=== PATIENT | female | born 1960 | race African-American/Black ===

== ENCOUNTER 2018-03-17 20:52 | Inpatient (IN) | payer BC ==
[2018-03-17] MEDS ORDERED: NORMAL SALINE 1000 ML 1,000 ML IV ONE (21:32)
--- NOTE | 2018-03-17 21:33 | ER Document Report ---
ED Medical Screen (RME) - General Chief Complaint: High Blood Sugar Stated Complaint: BLOOD SUGAR PROBLEM Time Seen by Provider: 03/17/18 21:30 Mode of Arrival: Ambulatory Information source: Patient Notes: 58-year-old female hypertensive patient with no PCP has been feeling very fatigued all weekend with polydipsia poly-urea. Her daughter measured her blood sugar today and it read H at home and they believe that she is a new onset diabetic. Weight loss. No chest pain or abd. pain. No fever. IV has been inserted and 1 L of normal saline as a running. She is drinking water without vomiting. Labs have been sent and I added a venous blood gas. She is sitting in the pit waiting room. - Related Data Allergies/Adverse Reactions: No Known Allergies Allergy (Verified 07/14/13 11:35) Past Medical History - Past Medical History Cardiac Medical History: Reports: Hx Hypertension Neurological Medical History: Reports: Hx Migraine - Immunizations Hx Diphtheria, Pertussis, Tetanus Vaccination: No Course - Laboratory Result Diagrams: 03/17/18 21:10 03/17/18 21:10
[2018-03-17 21:46] LABS: ABSOLUTE BASOPHILS # (AUTO) 0.1 10^3/uL (0.0-0.2); ABSOLUTE MONOCYTES (AUTO) 0.7 10^3/uL (0.1-1.4); ABSOLUTE NEUT (AUTO) 7.6 10^3/uL (1.7-8.2); BASOPHILS % (AUTO) 0.7 % (0-2); EOSINOPHILS % (AUTO) 0.3 % (0-6); HEMATOCRIT 36.9 % (36.0-47.0); HEMOGLOBIN 12.1 g/dL (12.0-15.5); LYMPHOCYTES % (AUTO) 19.1 % (13-45); MEAN CORPUSCULAR HEMOGLOBIN 26.9 pg (27.0-33.4); MEAN CORPUSCULAR HGB CONC 32.9 g/dL (32.0-36.0); MEAN CORPUSCULAR VOLUME 82 fl (80-97); MONOCYTES % (AUTO) 6.8 % (3-13); PLATELET COUNT 403 10^3/uL (150-450); RED BLOOD COUNT 4.52 10^6/uL (3.72-5.28); RED CELL DISTRIBUTION WIDTH 14.6 % (11.5-14.0); SEGMENTED NEUTROPHILS % (AUTO) 73.1 % (42-78); TOTAL CELLS COUNTED % (AUTO) 100 %; WHITE BLOOD COUNT 10.4 10^3/uL (4.0-10.5)
[2018-03-17 21:52] LABS: ALANINE AMINOTRANSFERASE 74 U/L (9-52); ALBUMIN 4.2 g/dL (3.5-5.0); ALKALINE PHOSPHATASE 362 U/L (38-126); ANION GAP 12 (5-19); ASPARTATE AMINO TRANSFERASE 106 U/L (14-36); BILIRUBIN,TOTAL 1.6 mg/dL (0.2-1.3); BLOOD UREA NITROGEN 26 mg/dL (7-20); CALCIUM 9.6 mg/dL (8.4-10.2); CARBON DIOXIDE 32 mmol/L (22-30); CHLORIDE 75 mmol/L (98-107); POTASSIUM 3.5 mmol/L (3.6-5.0); TOTAL PROTEIN 7.3 g/dL (6.3-8.2)
[2018-03-17 22:04] LABS: SODIUM 118.5 mmol/L (137-145)
[2018-03-17 22:05] LABS: GLUCOSE 954 mg/dL (75-110)
[2018-03-17] MEDS ORDERED: DEXTROSE 40% GEL 15 GM TUBE PO PRN ×4 (22:11→22:20)
[2018-03-17] MEDS ORDERED: DEXTROSE 50%-WATER 25 GM/50 ML DISP.SYRIN IV PRN ×4 (22:11→22:20)
[2018-03-17] MEDS ORDERED: NORMAL SALINE 100 ML with INSULIN REGULAR, HUMAN 100 UNIT IV PRN ×2 (22:11)
[2018-03-17] MEDS ORDERED: GLUCAGON,HUMAN RECOMB 1 MG INJ IM PRN ×2 (22:11→22:20)
[2018-03-17] MEDS ORDERED: INSULIN LISPRO 100 UNIT/ML 3 ML VIAL SUBCUT ONE (22:19)
[2018-03-17] MEDS ORDERED: HYDRALAZINE HCL INJ/PF 20 MG/1 ML SDV IV PRN (22:20)
--- NOTE | 2018-03-17 22:22 | ER Document Report ---
ED General - General Chief Complaint: High Blood Sugar Stated Complaint: BLOOD SUGAR PROBLEM Time Seen by Provider: 03/17/18 21:30 Mode of Arrival: Ambulatory Notes: Patient is a 58-year-old female presents with complaint of almost 1 week of increased thirst, increased urination, feeling very fatigued. Her friend is diabetic and checked her blood sugar and blood sugar read high and therefore he came to the ER. She is does not see Dr. She is on no medications. She is otherwise healthy. She has no other complaints this time. No recent fevers or infections. She denies any pain. She has some nausea but no vomiting. - Related Data Allergies/Adverse Reactions: No Known Allergies Allergy (Verified 07/14/13 11:35) Past Medical History - General Information source: Patient - Social History Smoking Status: Unknown if Ever Smoked Frequency of alcohol use: None Drug Abuse: None Family History: Reviewed & Not Pertinent - Past Medical History Cardiac Medical History: Reports: Hx Hypertension Neurological Medical History: Reports: Hx Migraine - Immunizations Hx Diphtheria, Pertussis, Tetanus Vaccination: No Review of Systems - Review of Systems Notes: My Normal Review Basic REVIEW OF SYSTEMS: CONSTITUTIONAL : Denies fever, chills, or sweats. Denies recent illness. CARDIOVASCULAR: Denies chest pain. RESPIRATORY: Denies cough, cold, or chest congestion. Denies shortness of breath, difficulty breathing, or wheezing. GASTROINTESTINAL: Denies abdominal pain. Denies nausea, vomiting, or diarrhea. GENITOURINARY: Increased urination. MUSCULOSKELETAL: Denies neck or back pain or joint pain or swelling. SKIN: Denies rash or skin lesions. NEUROLOGICAL: Denies altered mental status or loss of consciousness. Denies headache. Denies weakness or paralysis or loss of use of either side. Denies problems with gait or speech. Denies sensory or motor loss. ALL OTHER SYSTEMS REVIEWED AND NEGATIVE. Physical Exam - Vital signs Vitals: Pulse Resp BP Pulse Ox 110 H 14 133/81 H 97 03/17/18 21:00 03/17/18 21:00 03/17/18 21:00 03/17/18 21:00 - Notes Notes: General Appearance: Well nourished, alert, cooperative, no acute distress, no obvious discomfort. Well appearing Vitals: reviewed, See vital signs table. Head: no swelling or tenderness to the head Eyes: PERRL, EOMI, Conjuctiva clear Mouth: No decreasd moisture Lungs: No wheezing, No rales, No rhonci, No accessory muscle use, good air exchange bilaterally. Heart: Normal rate, Regular rythm, No murmur, no rub Abdomen: Normal BS, soft, No rigidity, No abdominal tenderness, No guarding, no rebound, no abdominal masses, no organomegaly Extremities: strength 5/5 in all extremities, good pulses in all extremities, no swelling or tenderness in the extremities, no edema. Skin: warm, dry, appropriate color, no rash Neuro: speech clear, oriented x 3, normal affect, responds appropriately to questions. Course - Re-evaluation Re-evalutation: 03/17/18 22:37 Patient has new onset diabetes. Patient's blood sugars over 900. She fortunately is not acidotic. She does have hyponatremia but this is a result of her being hypoglycemic. I did speak with the hospitalist, Dr. Philip, who agrees to admit the patient for treatment of her hyperglycemia, diabetes education, and starting her on medications to help manage her new onset diabetes. Patient agrees with plan and will be admitted. Dictation of this chart was performed using voice recognition software; therefore, there may be some unintended grammatical errors. - Vital Signs Vital signs: Temp Pulse Resp BP Pulse Ox 110 H 14 133/81 H 97 03/17/18 21:00 03/17/18 21:00 03/17/18 21:00 03/17/18 21:00 - Laboratory Result Diagrams: 03/17/18 21:10 03/17/18 21:10 Laboratory results interpreted by me: 03/17/18 03/17/18 21:10 21:10 MCH 26.9 L RDW 14.6 H Sodium 118.5 L* Potassium 3.5 L Chloride 75 L Carbon Dioxide 32 H BUN 26 H Glucose 954 H* Total Bilirubin 1.6 H Direct Bilirubin 1.0 H AST 106 H ALT 74 H Alkaline Phosphatase 362 H Discharge - Discharge Clinical Impression: Hyperglycemia Disposition: ADMITTED OBSERVATION Admitting Provider: Hospitalist Unit Admitted: Medical Floor
[2018-03-17 22:44] LABS: VENOUS BLOOD BASE EXCESS 4.2 mmol/L; VENOUS BLOOD HCO3 29.5 mmol/L (20-32); VENOUS BLOOD PCO2 47.1 mmHg (35-63); VENOUS BLOOD PH 7.42 (7.30-7.42)
[2018-03-17 22:59] LABS: APPEARANCE,URINE CLEAR; BILIRUBIN,URINE NEGATIVE (NEGATIVE); COLOR,URINE STRAW; GLUCOSE, URINE >=500 mg/dL (NEGATIVE); KETONES,URINE TRACE mg/dL (NEGATIVE); LEUKOCYTE ESTERASE,URINE NEGATIVE (NEGATIVE); NITRITE,URINE NEGATIVE (NEGATIVE); PROTEIN,URINE NEGATIVE (NEGATIVE); URINE SPECIFIC GRAVITY 1.023; UROBILINOGEN,URINE NEGATIVE mg/dL (<2.0)
[2018-03-18] MEDS ORDERED: DEXTROSE 40% GEL 15 GM TUBE PO PRN ×4 (01:18→16:57)
[2018-03-18] MEDS ORDERED: GLUCAGON,HUMAN RECOMB 1 MG INJ IM PRN ×2 (01:18→16:57)
[2018-03-18] MEDS ORDERED: DEXTROSE 50%-WATER 25 GM/50 ML DISP.SYRIN IV PRN ×4 (01:18→16:57)
--- NOTE | 2018-03-18 04:48 | PDOC H&P ---
History of Present Illness Admission Date/PCP: 03/17/18 22:34 Patient complains of: Abdominal pain nausea without vomiting History of Present Illness: SEDA LOYD is a 58 year old female with a past medical history of hypertension. Patient presents with 4 days of generalized fatigue, polyuria polydipsia and recent weight loss. In the emergency room she is found to have a blood sugar greater than 900 without altered mental status or acidosis. She receives an IV fluid challenge IV insulin and referred to the hospitalist for admission. She denies recent illness beyond the above. No new medications. Past Medical History Cardiac Medical History: Reports: Hypertension Neurological Medical History: Reports: Migraine Musculoskeltal Medical History: Reports: Arthritis Psychiatric Medical History: Denies: Depression Past Surgical History Past Surgical History: Reports: None Social History Information Source: Patient Smoking Status: Never Smoker Frequency of Alcohol Use: Social Hx Recreational Drug Use: No Drugs: None Hx Prescription Drug Abuse: No - Advance Directive Resuscitation Status: Full Code Family History Family History: Hypertension Parental Family History Reviewed: Yes Children Family History Reviewed: Yes Sibling(s) Family History Reviewed.: Yes Medication/Allergy Home Medications: Acetaminophen with Codeine [Tylenol with Codeine #3 Tablet] 1 tab PO TID PRN Azilsartan Med/Chlorthalidone [Edarbyclor 40-12.5 mg Tablet] 1 tab PO DAILY Hydroxyzine Pamoate [Vistaril 50 Mg Capsule] 50 mg PO DAILY PRN #10 capsule Allergies/Adverse Reactions: No Known Allergies Allergy (Verified 07/14/13 11:35) Review of Systems Constitutional: PRESENT: as per HPI, fatigue, weakness, weight loss. ABSENT: chills, fever(s), headache(s), weight gain Eyes: ABSENT: visual disturbances Ears: ABSENT: hearing changes Nose, Mouth, and Throat: ABSENT: headache(s), mouth pain, sore throat Cardiovascular: ABSENT: chest pain, dyspnea on exertion, edema, orthropnea, palpitations Respiratory: ABSENT: cough, hemoptysis Gastrointestinal: PRESENT: bloating, heartburn, nausea, vomiting. ABSENT: abdominal pain, constipation, diarrhea, hematemesis, hematochezia Genitourinary: PRESENT: as per HPI. ABSENT: dysuria, hematuria Musculoskeletal: ABSENT: joint swelling Integumentary: ABSENT: rash, wounds Neurological: ABSENT: abnormal gait, abnormal speech, confusion, dizziness, focal weakness, syncope Psychiatric: ABSENT: anxiety, depression, homidical ideation, suicidal ideation Endocrine: PRESENT: as per HPI, polydipsia, polyphagia, polyuria. ABSENT: cold intolerance, heat intolerance Hematologic/Lymphatic: ABSENT: easy bleeding, easy bruising Physical Exam Vital Signs: Temp Pulse Resp BP Pulse Ox 97.5 F 77 17 143/89 H 99 03/18/18 00:04 03/18/18 00:04 03/18/18 00:04 03/18/18 00:04 03/18/18 00:04 Intake & Output 03/16/18 03/17/18 03/18/18 11:59 11:59 11:59 Weight 87.1 kg General appearance: PRESENT: no acute distress, well-developed, well-nourished Head exam: PRESENT: atraumatic, normocephalic Eye exam: PRESENT: conjunctiva pink, EOMI, PERRLA. ABSENT: scleral icterus Ear exam: PRESENT: normal external ear exam Mouth exam: PRESENT: moist, tongue midline Neck exam: ABSENT: carotid bruit, JVD, lymphadenopathy, thyromegaly Respiratory exam: PRESENT: clear to auscultation manav. ABSENT: rales, rhonchi, wheezes Cardiovascular exam: PRESENT: RRR. ABSENT: diastolic murmur, rubs, systolic murmur Pulses: PRESENT: normal dorsalis pedis pul Vascular exam: PRESENT: normal capillary refill GI/Abdominal exam: PRESENT: normal bowel sounds, soft. ABSENT: distended, guarding, mass, organolmegaly, rebound, tenderness Rectal exam: PRESENT: deferred Extremities exam: PRESENT: full ROM. ABSENT: calf tenderness, clubbing, pedal edema Neurological exam: PRESENT: alert, awake, oriented to person, oriented to place , oriented to time, oriented to situation, CN II-XII grossly intact. ABSENT: motor sensory deficit Psychiatric exam: PRESENT: appropriate affect, normal mood. ABSENT: homicidal ideation, suicidal ideation Skin exam: PRESENT: dry, intact, warm. ABSENT: cyanosis, rash Results Laboratory Results: 03/17/18 22:50 Urine Color STRAW Urine Appearance CLEAR Urine pH 6.0 Ur Specific [place] 1.023 Urine Protein NEGATIVE Urine Glucose (UA) >=500 H Urine Ketones TRACE H Urine Blood NEGATIVE Urine Nitrite NEGATIVE Ur Leukocyte Esterase NEGATIVE Urine WBC (Auto) 1 Urine RBC (Auto) 1 Assessment & Plan - Diagnosis (1) Hyperglycemia Is this a current diagnosis for this admission?: Yes Plan: Secondary to undiagnosed diabetes. IV saline, insulin and education medical bed for observation (2) Hyponatremia Is this a current diagnosis for this admission?: Yes Plan: Pseudohyponatremia secondary to profound hyperglycemia. Follow-up chemistry (3) Diabetes Is this a current diagnosis for this admission?: Yes Plan: New diagnosis, health promotion educator and dietitian consult. 6 insulin 70 3015 units subcut with Humalog sliding scale - Time Time Spent: 30 to 50 Minutes - Inpatient Certification Medical Necessity: Need Close Monitoring Due to Risk of Patient Decompensation
[2018-03-18] MEDS ORDERED: HEPARIN SOD (PORCINE) 5,000 UNIT/ML 1 ML SYRINGE SUBCUT SCH (06:00)
[2018-03-18] MEDS: INSULIN LISPRO 100 UNIT/ML 3 ML VIAL SUBCUT PRN ×4 (06:06→22:20)
[2018-03-18] MEDS ORDERED: HUM INSULIN NPH/REG INSULIN HM 100 UNIT/1 ML 3 ML SUBCUT SCH (08:00)
[2018-03-18 11:07] LABS: ANION GAP 12 (5-19); BLOOD UREA NITROGEN 14 mg/dL (7-20); CALCIUM 9.9 mg/dL (8.4-10.2); CARBON DIOXIDE 32 mmol/L (22-30); CHLORIDE 84 mmol/L (98-107); GLUCOSE 272 mg/dL (75-110); SODIUM 128.4 mmol/L (137-145)
[2018-03-18 11:09] LABS: POTASSIUM 2.6 mmol/L (3.6-5.0)
[2018-03-18] MEDS ORDERED: POTASSIUM CHLORIDE 20 MEQ/15 ML UDCUP PO ONE ×2 (12:00→14:38)
[2018-03-18] MEDS ORDERED: POTASSIUM CHLORIDE 20 MEQ/50 ML RTU IV ONE (12:00)
[2018-03-18] MEDS ORDERED: HYDROXYZINE PAMOATE 50 MG CAPSULE PO PRN (17:03)
[2018-03-18] MEDS ORDERED: ACETAMINOPHEN WITH CODEINE #3 TABLET PO PRN (17:04)
--- NOTE | 2018-03-18 17:07 | PDOC PROGRESS REPORT ---
Subjective Progress Note for:: 03/18/18 Subjective:: 58-year-old female diagnosed with hypertension in the past with no outpatient medical follow-up. She presented to the hospital on March 17 with a 4 day history of generalized fatigue weakness probably urea and polydipsia and weight loss. In the emergency room she was found to have a blood sugar greater than 900. No evidence of metabolic acidosis. She was given IV fluids and insulin and admitted. She was started on 7030. She was found to have significant hypokalemia this morning and was given supplemental potassium. Reason For Visit: DIABETES newly diagnosed Physical Exam Vital Signs: Temp Pulse Resp BP Pulse Ox 98.3 F 94 14 117/90 H 100 03/18/18 16:00 03/18/18 16:00 03/18/18 16:00 03/18/18 16:00 03/18/18 16:00 Intake & Output 03/17/18 03/18/18 03/19/18 06:59 06:59 06:59 Intake Total 250 10 Balance 250 10 Weight 87.1 kg General appearance: PRESENT: no acute distress Head exam: PRESENT: normocephalic Eye exam: PRESENT: PERRLA. ABSENT: scleral icterus Ear exam: PRESENT: normal external ear exam Mouth exam: PRESENT: moist Neck exam: ABSENT: tracheal deviation Respiratory exam: PRESENT: clear to auscultation manav, symmetrical, unlabored Cardiovascular exam: PRESENT: RRR GI/Abdominal exam: PRESENT: normal bowel sounds, soft. ABSENT: tenderness Rectal exam: PRESENT: deferred Extremities exam: ABSENT: calf tenderness, pedal edema Neurological exam: PRESENT: alert, awake, oriented to person, oriented to place , oriented to time, oriented to situation Psychiatric exam: PRESENT: appropriate affect Skin exam: ABSENT: rash, skin tears Results Laboratory Results: 03/18/18 10:23 03/17/18 03/18/18 03/18/18 22:50 10:23 10:23 Sodium 128.4 L Potassium 2.6 L* Chloride 84 L Carbon Dioxide 32 H Anion Gap 12 BUN 14 Creatinine 0.54 Est GFR ( Amer) > 60 Est GFR (Non-Af Amer) > 60 Glucose 272 H Calcium 9.9 Phosphorus 2.0 L Magnesium 2.3 TSH 0.27 L Urine Color STRAW Urine Appearance CLEAR Urine pH 6.0 Ur Specific [place] 1.023 Urine Protein NEGATIVE Urine Glucose (UA) >=500 H Urine Ketones TRACE H Urine Blood NEGATIVE Urine Nitrite NEGATIVE Ur Leukocyte Esterase NEGATIVE Urine WBC (Auto) 1 Urine RBC (Auto) 1 Assessment & Plan - Diagnosis (1) Newly diagnosed diabetes Is this a current diagnosis for this admission?: Yes Plan: Started on 70/30, continue sliding scale adjust dosage, monitor glucose Diabetes education (2) Hypokalemia Is this a current diagnosis for this admission?: Yes Plan: Replaced, continue to monitor. Discontinue chlorthalidone (3) Hyponatremia Is this a current diagnosis for this admission?: No Plan: Ruled out-corrected sodium is 134. (4) Hypertension Qualifiers: Hypertension type: essential hypertension Qualified Code(s): I10 - Essential (primary) hypertension Is this a current diagnosis for this admission?: Yes Plan: BPs are running low normal. No medications for now. Continue to monitor. - Time Time Spent with patient: 35 or more minutes
[2018-03-18] MEDS ORDERED: HUM INSULIN NPH/REG INSULIN HM 100 UNIT/1 ML 3 ML SUBCUT ONE (17:30)
--- NOTE | 2018-03-18 21:44 | EKG REPORT ---
SEVERITY:- ABNORMAL ECG - SINUS RHYTHM LVH WITH SECONDARY REPOLARIZATION ABNORMALITY : Confirmed by: Luann Hope 18-Mar-2018 21:43:53
[2018-03-19 04:41] LABS: ANION GAP 9 (5-19); BLOOD UREA NITROGEN 12 mg/dL (7-20); CALCIUM 10.3 mg/dL (8.4-10.2); CARBON DIOXIDE 34 mmol/L (22-30); CHLORIDE 92 mmol/L (98-107); CHOLESTEROL 171.08 mg/dL (0-200); GLUCOSE 326 mg/dL (75-110); POTASSIUM 3.4 mmol/L (3.6-5.0); SODIUM 135.2 mmol/L (137-145); TRIGLYCERIDES 156 mg/dL (<150)
[2018-03-19 04:53] LABS: DIRECT LDL 83 mg/dL (<100)
[2018-03-19 04:57] LABS: VLDL CHOLESTEROL 31.2 mg/dL (10-31)
[2018-03-19] MEDS ORDERED: HUM INSULIN NPH/REG INSULIN HM 100 UNIT/1 ML 3 ML SUBCUT SCH (08:00)
[2018-03-19] MEDS ORDERED: POTASSIUM CHLORIDE 20 MEQ/15 ML UDCUP PO ONE (08:55)
[2018-03-19] MEDS: INSULIN LISPRO 100 UNIT/ML 3 ML VIAL SUBCUT PRN ×3 (09:03→16:58)
[2018-03-19] MEDS ORDERED: HUM INSULIN NPH/REG INSULIN HM 100 UNIT/1 ML 3 ML SUBCUT ONE (09:15)
--- NOTE | 2018-03-19 11:54 | PDOC PROGRESS REPORT ---
Subjective Progress Note for:: 03/19/18 Subjective:: 58-year-old female diagnosed with hypertension in the past with no outpatient medical follow-up. She presented to the hospital on March 17 with a 4 day history of generalized fatigue weakness probably urea and polydipsia and weight loss. In the emergency room she was found to have a blood sugar greater than 900. No evidence of metabolic acidosis. She was given IV fluids and insulin and admitted. She was started on 70/30. Doses are being adjusted for better blood glucose control. This morning it was increased to 25 units twice a day. She is hypokalemic again and this was repleted. No complaints at present. Reason For Visit: DIABETES Physical Exam Vital Signs: Temp Pulse Resp BP Pulse Ox 97.4 F 90 18 118/93 H 100 03/19/18 08:00 03/19/18 08:00 03/19/18 08:00 03/19/18 08:00 03/19/18 08:00 Intake & Output 03/18/18 03/19/18 03/20/18 06:59 06:59 06:59 Intake Total 250 1246 10 Balance 250 1246 10 Weight 87.1 kg 87.1 kg General appearance: PRESENT: no acute distress Eye exam: ABSENT: scleral icterus Ear exam: PRESENT: normal external ear exam Mouth exam: PRESENT: moist Neck exam: ABSENT: tracheal deviation Respiratory exam: PRESENT: clear to auscultation manav, symmetrical, unlabored Cardiovascular exam: PRESENT: RRR GI/Abdominal exam: PRESENT: normal bowel sounds, soft. ABSENT: tenderness Rectal exam: PRESENT: deferred Extremities exam: ABSENT: calf tenderness, pedal edema Neurological exam: PRESENT: alert, awake, oriented to person, oriented to place , oriented to time, oriented to situation Psychiatric exam: PRESENT: appropriate affect Skin exam: ABSENT: petechiae Results Laboratory Results: 03/19/18 04:04 03/19/18 03/19/18 04:04 04:04 Sodium 135.2 L Potassium 3.4 L Chloride 92 L Carbon Dioxide 34 H Anion Gap 9 BUN 12 Creatinine 0.64 Est GFR ( Amer) > 60 Est GFR (Non-Af Amer) > 60 Glucose 326 H Calcium 10.3 H Triglycerides 156 H Cholesterol 171.08 LDL Cholesterol Direct 83 VLDL Cholesterol 31.2 H HDL Cholesterol 57 TSH 1.10 03/17/18 22:50 Clean Catch Midstream Urine Culture - Final Mixed Urogenital Danielle Assessment & Plan - Diagnosis (1) Newly diagnosed diabetes Is this a current diagnosis for this admission?: Yes Plan: Started on 70/30, continue sliding scale Continue to adjust dosage, monitor glucose Diabetes education (2) Hypokalemia Is this a current diagnosis for this admission?: Yes Plan: Replaced, continue to monitor. Discontinued chlorthalidone (3) Hyponatremia Is this a current diagnosis for this admission?: No Plan: Ruled out-corrected sodium is 134. (4) Hypertension Qualifiers: Hypertension type: essential hypertension Qualified Code(s): I10 - Essential (primary) hypertension Is this a current diagnosis for this admission?: Yes Plan: BPs are running low normal. No medications for now. Continue to monitor. - Time Time Spent with patient: 35 or more minutes
[2018-03-19] MEDS: ASPIRIN 81 MG TABLET, ENT COATED PO SCH (13:00)
[2018-03-19] MEDS: HUM INSULIN NPH/REG INSULIN HM 100 UNIT/1 ML 3 ML SUBCUT SCH (16:58)
[2018-03-20] MEDS: INSULIN LISPRO 100 UNIT/ML 3 ML VIAL SUBCUT PRN ×2 (07:39→11:54)
[2018-03-20] MEDS: HUM INSULIN NPH/REG INSULIN HM 100 UNIT/1 ML 3 ML SUBCUT SCH (07:39)
[2018-03-20 09:20] LABS: ANION GAP 9 (5-19); BLOOD UREA NITROGEN 10 mg/dL (7-20); CALCIUM 9.5 mg/dL (8.4-10.2); CARBON DIOXIDE 31 mmol/L (22-30); CHLORIDE 94 mmol/L (98-107); GLUCOSE 391 mg/dL (75-110); POTASSIUM 3.4 mmol/L (3.6-5.0); SODIUM 134.4 mmol/L (137-145)
[2018-03-20] MEDS: ASPIRIN 81 MG TABLET, ENT COATED PO SCH (11:54)
--- NOTE | 2018-03-20 15:03 | PDOC DISCHARGE SUMMARY ---
General - Admit/Disc Date/PCP Admission Date/Primary Care Provider: 03/17/18 22:34 Discharge Date: 03/20/18 - Discharge Diagnosis (1) Newly diagnosed diabetes Is this a current diagnosis for this admission?: Yes Summary: Started on insulin 70/30- Diabetes education provided. To see PCP - establish care in 1 week Home health [facility] to monitor glucose and Insulin use HbA1C 14 (2) Hypokalemia Is this a current diagnosis for this admission?: Yes (3) Hyponatremia Is this a current diagnosis for this admission?: No Summary: Spurious- due to severe hyperglycemia (4) Hypertension Is this a current diagnosis for this admission?: Yes - Additional Information Resuscitation Status: Full Code Discharge Diet: Diabetic Discharge Activity: Activity As Tolerated Prescriptions: Aspirin [Ecotrin 81 mg EC Tablet] 81 mg PO NOON 30 Days #30 tabec Dextrose [Glutose 40% Gel 15 gm Tube] 30 gm PO PRN PRN 30 Days #5 tube PRN Reason: Glucagon,Human Recombinant [Glucagen Inj 1 mg Vial] 1 mg IM PRN PRN 30 Days #3 vial PRN Reason: Hum Insulin NPH/Reg Insulin Hm [Insulin 70-30 (NPH/Reg) 100 unit/mL] 45 unit SUBCUT ACBRKFST #1 bottle Hum Insulin NPH/Reg Insulin Hm [Insulin 70-30 (NPH/Reg) 100 unit/mL] 25 unit SUBCUT ACSUPPER #1 bottle Potassium Chloride [Klor-Con 10 Meq Tablet.sa] 40 meq PO DAILY 3 Days #3 tablet.sa Home Medications: Acetaminophen with Codeine [Tylenol with Codeine #3 Tablet] 1 tab PO TID PRN Hydroxyzine Pamoate [Vistaril 50 mg Capsule] 50 mg PO DAILY PRN #10 capsule Acetaminophen with Codeine [Tylenol #3 Tablet] 1 each PO Q4HP PRN tablet Aspirin [Ecotrin 81 mg EC Tablet] 81 mg PO NOON 30 Days #30 tabec 03/20/18 Dextrose [Glutose 40% Gel 15 gm Tube] 30 gm PO PRN PRN 30 Days #5 tube 03/20/18 Glucagon,Human Recombinant [Glucagen Inj 1 mg Vial] 1 mg IM PRN PRN 30 Days #3 vial 03/20/18 Hum Insulin NPH/Reg Insulin Hm [Insulin 70-30 (NPH/Reg) 100 unit/mL] 25 unit SUBCUT ACSUPPER #1 bottle 03/20/18 Hum Insulin NPH/Reg Insulin Hm [Insulin 70-30 (NPH/Reg) 100 unit/mL] 45 unit SUBCUT ACBRKFST #1 bottle 03/20/18 Potassium Chloride [Klor-Con 10 Meq Tablet.sa] 40 meq PO DAILY 3 Days #3 tablet.sa 03/20/18 History of Present Illness History of Present Illness: 58-year-old female diagnosed with hypertension in the past with no outpatient medical follow-up. She presented to the hospital on March 17 with a 4 day history of generalized fatigue weakness probably urea and polydipsia and weight loss. In the emergency room she was found to have a blood sugar greater than 900. No evidence of metabolic acidosis. She was given IV fluids and insulin and admitted. She was started on 70/30. Doses were adjusted for better blood glucose control. This morning it was increased to 25 units twice a day. She was hypokalemic again and this was repleted. BP running low- normal. ARB/Chlorthalidone stopped Single lipid panel within normal limits. She was started on aspirin. She is to follow-up with her primary care physician in 1 week. She is being discharged with insulin 70/30= 45 units in the morning and 25 units in the evening. Physical Exam Vital Signs: Temp Pulse Resp BP Pulse Ox 98.2 F 82 16 121/74 100 03/20/18 11:15 03/20/18 11:15 03/20/18 11:15 03/20/18 11:15 03/20/18 11:15 Intake & Output 03/19/18 03/20/18 03/21/18 06:59 06:59 06:59 Intake Total 1246 1090 970 Balance 1246 1090 970 Weight 87.1 kg 88.6 kg 88.6 kg General appearance: PRESENT: no acute distress Respiratory exam: PRESENT: symmetrical, unlabored GI/Abdominal exam: PRESENT: normal bowel sounds Results Laboratory Results: 03/20/18 08:24 03/20/18 08:24 Sodium 134.4 L Potassium 3.4 L Chloride 94 L Carbon Dioxide 31 H Anion Gap 9 BUN 10 Creatinine 0.48 L Est GFR ( Amer) > 60 Est GFR (Non-Af Amer) > 60 Glucose 391 H Calcium 9.5 Magnesium 2.0 Status: Imported from PACS Qualifiers - * PATEINT BEING DISCHARGED WITH ANY OF THE FOLLOWING DIAGNOSIS?: No Plan Time Spent: Greater than 30 Minutes
[2018-03-20] MEDS ORDERED: HUM INSULIN NPH/REG INSULIN HM 100 UNIT/1 ML 3 ML SUBCUT SCH ×2 (16:00)
[2018-03-20 16:06] VITALS: BP 125/66
[2018-03-20] MEDS ORDERED: POTASSIUM CHLORIDE 10 MEQ TABLET.SA PO ONE (16:30)
[2018-03-21] MEDS ORDERED: HUM INSULIN NPH/REG INSULIN HM 100 UNIT/1 ML 3 ML SUBCUT SCH ×2 (08:00)
[2018-03-21] MEDS ORDERED: POTASSIUM CHLORIDE 10 MEQ TABLET.SA PO SCH (10:00)
== END 2018-03-20 16:20 | disposition home health service (06) | DRG 638 ==
LOC: ER 20:52 → EH 22:32 → OBSVTOIN 22:34 → 5 03-18 00:04
PROVIDERS: ADMIT Internal Medicine; ATTEND Internal Medicine
DX: E11.65 Type 2 diabetes mellitus with hyperglycemia (principal); E87.1 Hypo-osmolality and hyponatremia; I10 Essential (primary) hypertension; G43.909 Migraine, unspecified, not intractable, without status migrainosus; M19.90 Unspecified osteoarthritis, unspecified site; Z82.49 Family history of ischemic heart disease and other diseases of the circulatory system; E87.6 Hypokalemia; Z79.4 Long term (current) use of insulin
CPT/HCPCS: 36415; 80048; 80053; 80061; 81001; 82803; 82962; 83036; 83735; 84100; 84443; 85025; 87086; 93005; 93010; 96360; 99285; J1815; J3480; J7030